=== PATIENT | male | born 1970 | race African-American/Black ===

== ENCOUNTER 2017-02-18 09:06 | Emergency (ER) | payer SELFPAY ==
[~2017-02-18] VITALS: Ht 170.2 cm; Wt 72.6 kg
[2017-02-18 09:11] VITALS: BP 137/81
[2017-02-18] MEDS ORDERED: CLOT15CR4 TP (10:04)
--- NOTE | 2017-02-18 10:04 | PHYS DOC ---
Past Medical History Past Medical History: Alcoholism, GERD Past Surgical History: No Surgical History Alcohol Use: Occasionally Drug Use: Marijuana Adult General Chief Complaint Chief Complaint: SKIN RASH/ABSCESS HPI HPI Patient is a 46 year old male presents to the emergency department stating that he has been having a rash on the left side of his neck for about 1 month. He states the area itches denies any drainage or discharge coming from the site. Patient denies any fever, chills or any nausea or vomiting. Review of Systems Review of Systems Constitutional: Denies fever or chills [] Eyes: Denies change in visual acuity, redness, or eye pain [] HENT: Denies nasal congestion or sore throat [] Respiratory: Denies cough or shortness of breath [] Cardiovascular: No additional information not addressed in HPI [] GI: Denies abdominal pain, nausea, vomiting, bloody stools or diarrhea [] : Denies dysuria or hematuria [] Musculoskeletal: Denies back pain or joint pain [] Integument: rash denies skin lesions [] Neurologic: Denies headache, focal weakness or sensory changes [] Endocrine: Denies polyuria or polydipsia [] Allergies Allergies Allergies Coded Allergies Type Severity Reaction Last Updated Verified No Known Drug Allergies 01/06/14 No Physical Exam Physical Exam Constitutional: Well developed, well nourished, no acute distress, non-toxic appearance. [] HENT: Normocephalic, atraumatic, bilateral external ears normal, oropharynx moist, no oral exudates, nose normal. [] Eyes: PERRLA, EOMI, conjunctiva normal, no discharge. [] Neck: Normal range of motion, no tenderness, supple, no stridor. [] Cardiovascular:Heart rate regular rhythm, no murmur [] Lungs & Thorax: Bilateral breath sounds clear to auscultation [] Skin: Warm, dry, no erythema, patient with a round red rash on the left side of his neck and drainage or discharge noted from the area rash appears to be raised although no papules or pustules noted. Back: No tenderness Extremities: No tenderness, no cyanosis, no clubbing, ROM intact, no edema. [] Neurologic: Alert and oriented X 3, normal motor function, normal sensory function, no focal deficits noted. [] Psychologic: Affect normal, judgement normal, mood normal. [] Current Patient Data Vital Signs Vital Signs Date Time Temp Pulse Resp B/P (MAP) Pulse Ox O2 Delivery O2 Flow Rate FiO2 02/18/17 09:11 98.1 55 18 99 Room Air 98.1 EKG EKG [] Radiology/Procedures Radiology/Procedures [] Course & Med Decision Making Course & Med Decision Making Pertinent Labs and Imaging studies reviewed. (See chart for details) Patient will be discharged home with recommendations to use Benadryl for any itching or irritation. Recommended to keep the area clean dry and cool. Patient was also encouraged to use Aveeno baths to help soothe the skin. Signs and symptoms to return back to the emergency department as been provided. Patient agrees with discharge instructions treatment regimens and follow-up recommendations. Dragon Disclaimer Dragon Disclaimer This electronic medical record was generated, in whole or in part, using a voice recognition dictation system. Departure Departure Impression: Primary Impression: Tinea corporis Disposition: HOME, SELF-CARE Condition: STABLE Referrals: NO PCP (PCP) Patient Instructions: Body Ringworm Additional Instructions: Keep the area clean and dry. Continue to wash the site with soap and water on a daily basis. Medication as prescribed. You may use Benadryl at night to help sleep if you have irritation and itching. Keep the skin clean dry and cool the cooler you keep it so less irritated at all.. Follow-up the primary care physician in the next week. Return back to emergency prior signs symptoms become worse. Scripts Clotrimazole (CLOTRIMAZOLE) 15 Gm Cream..g. 1 MORIS TP BID, #30 GM Prov: YRIS HOGAN APRN 02/18/17 YRIS HOGAN APRN Feb 18, 2017 10:04
== END 2017-02-18 10:08 | disposition home or self-care (01) ==
LOC: ER 09:06
DX: B35.4 Tinea corporis (principal); K21.9 Gastro-esophageal reflux disease without esophagitis; F12.10 Cannabis abuse, uncomplicated; F10.20 Alcohol dependence, uncomplicated
CPT/HCPCS: 99283

== ENCOUNTER 2017-07-01 09:42 | Emergency (ER) | payer SELFPAY ==
[~2017-07-01 09:42] MED LIST: CLOT15CR4 TP
[2017-07-01 09:56] VITALS: BP 130/89
[2017-07-01 10:27] LABS: BILIRUBIN,URINE NEGATIVE (NEG); GLUCOSE,URINE NEGATIVE (NEG); NITRITE,URINE NEGATIVE (NEG); PH,URINE 7.5; PROTEIN,URINE NEGATIVE (NEG-TRACE); UROBILINOGEN,URINE 0.2 mg/dL (0.2 mg/dL)
[2017-07-01] MEDS ORDERED: cefTRIAXone IM 250 MG VIAL IM ONE (10:30)
[2017-07-01] MEDS ORDERED: AZITHROMYCIN 250 MG TABLET. PO ONE (10:30)
[2017-07-01] MEDS ORDERED: metroNIDAZOLE 500 MG TABLET PO ONE (10:30)
[2017-07-01 10:44] LABS: BACTERIA,URINE 0 /HPF (0-FEW); RBC,URINE 0 /HPF (0-2); SQUAMOUS EPITHELIAL CELL,UR OCC /LPF; WBC,URINE 0 /HPF (0-4)
--- NOTE | 2017-07-01 10:56 | PHYS DOC ---
Past Medical History Past Medical History: Alcoholism, GERD Past Surgical History: No Surgical History Alcohol Use: Heavy Additional Information: 3-4 BEERS Drug Use: None Adult General Chief Complaint Chief Complaint: SEXUALLY TRANSMITTED DISEASE HPI HPI Patient is a 46 year old male who presents with concern for STDs. Patient states he had unprotected sex and the female partner called him stating she is "sick" and patient would like to be checked for possible STDs including HIV. Patient states the female partner did not specify what she is suffering from. Review of Systems Review of Systems Constitutional: Denies fever or chills [] GI: Denies abdominal pain, nausea, vomiting, bloody stools or diarrhea [] : Reports concern for STDs. Denies dysuria or hematuria [] Musculoskeletal: Denies back pain or joint pain [] Integument: Denies rash or skin lesions [] Neurologic: Denies headache, focal weakness or sensory changes [] All other systems were reviewed and found to be within normal limits, except as documented in this note. Current Medications Current Medications Current Medications Medications (Trade) Dose Ordered Sig/Keturah Start Time Stop Time Status Last Admin Dose Admin Azithromycin (Zithromax) 1,000 mg 1X ONCE 07/01/17 10:30 07/01/17 10:31 DC 07/01/17 10:28 1,000 MG Ceftriaxone Sodium (Rocephin Im) 250 mg 1X ONCE 07/01/17 10:30 07/01/17 10:31 DC 07/01/17 10:29 250 MG Metronidazole (Flagyl) 2,000 mg 1X ONCE 07/01/17 10:30 07/01/17 10:31 DC 07/01/17 10:28 2,000 MG Allergies Allergies Allergies Coded Allergies Type Severity Reaction Last Updated Verified No Known Drug Allergies 01/06/14 No Physical Exam Physical Exam Constitutional: Well developed, well nourished, no acute distress, non-toxic appearance. [] Abdomen: Bowel sounds normal, soft, no tenderness, no masses, no pulsatile masses. [] Skin: Warm, dry, no erythema, no rash. [] Back: No tenderness, no CVA tenderness. [] Extremities: No tenderness, no cyanosis, no clubbing, ROM intact, no edema. [] Neurologic: Alert and oriented X 3, normal motor function, normal sensory function, no focal deficits noted. [] Psychologic: Affect normal, judgement normal, mood normal. [] Current Patient Data Vital Signs Vital Signs Date Time Temp Pulse Resp B/P (MAP) Pulse Ox O2 Delivery O2 Flow Rate FiO2 07/01/17 09:56 97.6 64 18 99 Room Air 97.6 Lab Values Laboratory Tests Test 07/01/17 10:00 Urine Collection Type Unknown Urine Color Yellow Urine Clarity Clear Urine pH 7.5 Urine Specific Platinum <=1.005 Urine Protein Negative mg/dL (NEG-TRACE) Urine Glucose (UA) Negative mg/dL (NEG) Urine Ketones (Stick) Negative mg/dL (NEG) Urine Blood Negative (NEG) Urine Nitrite Negative (NEG) Urine Bilirubin Negative (NEG) Urine Urobilinogen Dipstick 0.2 mg/dL (0.2 mg/dL) Urine Leukocyte Esterase Negative (NEG) Urine RBC 0 /HPF (0-2) Urine WBC 0 /HPF (0-4) Urine Squamous Epithelial Cells Occ /LPF Urine Bacteria 0 /HPF (0-FEW) EKG EKG [] Radiology/Procedures Radiology/Procedures [] Course & Med Decision Making Course & Med Decision Making Pertinent Labs and Imaging studies reviewed. (See chart for details) This is a 46-year-old male presenting to the ED with concern for STDs. Urine was sent to lab. Patient was given standard treatment of Flagyl Rocephin and azithromycin. He wanted to be tested for other STDs including HIV. Recommended the health department for this. Educated on safe sex practices and the need to use protection. Follow-up with the health department. Dragon Disclaimer Dragon Disclaimer This electronic medical record was generated, in whole or in part, using a voice recognition dictation system. Departure Departure Impression: Primary Impression: Concern about STD in male without diagnosis Disposition: 01 HOME, SELF-CARE Condition: STABLE Referrals: NO PCP (PCP) [address] [address] Hours: Open today [id number] Patient Instructions: Sexually Transmitted Disease, [id number] Additional Instructions: You were seen with concern for STDs. You were treated in the emergency room for the most common STDs including gonorrhea chlamydia and Trichomonas. Please follow-up with [facility] if you need further testing for other STDs including syphilis and HIV. Contact information is below. Use protection at all times. Contact all your sex partners, let them know you were treated for STDs and ask them to seek treatment too. Use protection at all times. [facility] [address] [place] [address] Hours: Open today [id number] ALFONZO CASAS APRN Jul 01, 2017 10:56
== END 2017-07-01 11:00 | disposition home or self-care (01) ==
LOC: ER 09:42
DX: Z20.2 Contact with and (suspected) exposure to infections with a predominantly sexual mode of transmission (principal); K21.9 Gastro-esophageal reflux disease without esophagitis; F10.20 Alcohol dependence, uncomplicated
CPT/HCPCS: 81001; 87491; 87591; 96372; 99284; J0696; Q0144